=== PATIENT | female | born 1970 | race Caucasian/White ===

== ENCOUNTER 2020-07-26 12:05 | Emergency (ER) | payer OTHER, SELFPAY ==
[2020-07-26 12:13] VITALS: BP 182/102; PULSE 64; RESP 18; O2SAT 99; BMI 31.2
--- NOTE | 2020-07-26 12:21 | DI.RAD.S_ITS ---
PROCEDURE: XR CHEST 1V INDICATIONS: Elevated glucose, hx of T1DM TECHNIQUE: One view of the chest was acquired. COMPARISON: None. FINDINGS: Surgical changes and devices: None. Lungs and pleura: Lungs are clear. No pleural effusions or pneumothorax. Mediastinum: Mediastinal contours appear normal. Heart size is normal. Bones and chest wall: No suspicious bony lesions. Mild, age-appropriate degenerative changes are seen. Overlying soft tissues appear unremarkable. IMPRESSION: Normal portable chest. Dictated by: Marko Maxwell M.D. on 07/26/2020 at 11:55 Approved by: Marko Maxwell M.D. on 07/26/2020 at 11:56
--- NOTE | 2020-07-26 12:31 | ED_ITS ---
HPI - General Adult <Ralf Velasco [facility] - Last Filed: 07/26/20 14:42> General Chief complaint: Diabetic Problem Stated complaint: states DKA Time Seen by Provider: 07/26/20 12:08 Source: patient Mode of arrival: Ambulatory Limitations: no limitations History of Present Illness HPI narrative: This is a 49-year-old female, former smoker, who has past medical history significant for depression, PTSD, OCD, hypertension, hyperlipidemia, type 1 diabetes and on insulin pump with Novalog on 18.6 units/day presents to ED with friend with chief complain of DKA symptoms. Patient reports ge neralized body aches and describes as body's on fire patient usually gets DKA. Patient reports urinary frequency, urgency, dysuria for last 36 hours. Patient also reports polydipsia. Patient denies recent cough or short of breath. Patient reports feeling sweaty and nausea but she usually gets nauseated most of the days. Patient traveled to [place] during [place] years and states she did not have insulin pump needle readily available for last 2-3 days and possibly the insulin pump needle had not placed appropriately on her abdomen. Patient had 1 alcohol drink last yesterday. Patient also reports skin lesion in left upper thigh. Patient lives in [place] and seek medical attention from [facility]. PCP Dr. Garcia and professor of business administration Dr. Karen Galindo. Related Data Allergies Allergy/AdvReac Type Severity Reaction Status Date / Time adhesive Allergy Intermediate Rash Verified 07/26/20 12:18 Sulfa (Sulfonamide Allergy Unknown Verified 07/26/20 12:18 Antibiotics) tetanus toxoid, adsorbed Allergy Unknown Verified 07/26/20 12:18 all pain meds AdvReac Unknown Uncoded 07/26/20 12:18 Review of Systems <Ralf Velasco [employer] - Last Filed: 07/26/20 14:42> Review of Systems Narrative: General: Denies fever, chills, fatigue, malaise, (+) sweats. HEENT: Denies sinus pain, ear pain, sore throat, difficulty swallowing, dizziness. Respiratory: Denies dyspnea, cough, wheezing, hemoptysis, sputum. Cardiovascular: Denies chest pain, palpitations, orthopnea, edema. Gastrointestinal: Denies (+) nausea, vomiting, abdominal pain, diarrhea, constipation, melena. : See HPI Musculoskeletal: See HPI Skin: The HPI Neurologic: Denies weakness, headache, numbness, change in speech, confusion, seizures, incoordination. Psychiatric: See HPI 12-point review of systems is negative except for those stated above. Patient History <LYNSEY Mackey - Last Filed: 07/26/20 14:42> Medical History DKA (diabetic ketoacidoses) Hyperlipidemia Hypertension Insulin dependent diabetes mellitus Major depression OCD (obsessive compulsive disorder) PTSD (post-traumatic stress disorder) Suicidal ideation Social History Smoking Status: Former smoker Smoking Status: Former smoker alcohol intake frequency: 0-2 drinks per day Substance Use Type: marijuana Exam <LYNSEY Mackey - Last Filed: 07/26/20 14:42> Narrative Exam Narrative: GEN: Alert, oriented x 3, well appearing and nourished, and in no acute distress. Head: Normal cephalic, atraumatic. No scalp or temporal tenderness, palpable mass or rash. Patient has on dark sunglasses and hat due to chronic photophobia. EYES: Pupils are equal, round, and reactive to light and accommodation. Extraocular muscles are intact bilaterally. There is no subconjunctival hemorrhage, exudate and sclera non-icteric. ENT: Hearing grossly intact. Nose without bleeding, purulent discharge or deviation. Facial sinuses nontender to palpate. Mucous membrane dry, no mucosal lesion. Throat without erythema, tonsillar hypertrophy or exudate. Uvula in midline, airway patent. Neck: Trachea in midline. No JVD, non-tender without lymphadenopathy. No masses or thyroid megaly. Supple, non-tender and no meningeal signs. CARDIAC: Normal regular rate and rhythm without murmurs, gallops, or rubs. No chest wall tenderness. No peripheral edema, cyanosis or pallor. Capillary refill is less than 2 seconds. RESPIRATORY: Lungs are clear to auscultate bilaterally. No cough, wheezes, rales, or rhonchi. No stridor, respiratory distress, increase work of breathing, or accessary muscle used. ABD: Abdomen soft, nontender and non-distended. No guarding or rebound tenderness to palpate. Bowel sounds are normal in all 4 quadrants. There is no palpable masses or organomegaly. EXT: Full painless ROM of all extremities with no loss of sensation, strength, effusion or edema. SKIN: Warm, dry, normal color for patient. No erythema, lesions or rash over visible areas. BACK: Nontender without deformity or crepitance. No flank tenderness. NEUROLOGICAL: Alert and oriented to place, time and person. Sensation and motor function intact bilaterally. No facial droops, dysphasia. PSYCHIATRIC: Good judgement and reason, without hallucinations, abnormal affect or abnormal behaviors during the examination. Patient is not suicidal. Initial Vital Signs Initial Vital Signs: Vital Signs Pulse Rate 64 07/26/20 12:13 Respiratory Rate 18 07/26/20 12:13 Blood Pressure 182/102 H 07/26/20 12:13 Pulse Oximetry 99 07/26/20 12:13 <Jonn Prasad DO - Last Filed: 07/26/20 18:19> Initial Vital Signs Initial Vital Signs: Vital Signs Pulse Rate 64 07/26/20 12:13 Respiratory Rate 18 07/26/20 12:13 Blood Pressure 182/102 H 07/26/20 12:13 Pulse Oximetry 99 07/26/20 12:13 Scores <LYNSEY Mackey - Last Filed: 07/26/20 14:42> GCS [place] coma scale eye opening: Spontaneous [place] coma scale verbal response: Orientated Meme coma scale motor response: Obey commands Meme coma scale total score: 15 qSOFA Altered Mental Status (GCS <15): No Respiratory rate greater than/equal to 22: No Systolic blood pressure less than or equal to 100: No qSOFA Total: 0 0-1 Not High Risk 1-3 High risk Course <LYNSEY Mackey - Last Filed: 07/26/20 14:42> Orders Ordered: ED Orders 07/26/20 12:20 EKG-12 Lead Stat 07/26/20 12:21 XR chest 1V Stat 07/26/20 12:55 Blood Culture Stat Comprehensive Metabolic Panel Stat Ketones (Beta-Hydroxybutyrate) Stat Lipase Stat Magnesium Stat Procalcitonin Stat Thyroid Stimulating Hormone Stat 07/26/20 12:57 Venous Blood Gas Stat 07/26/20 13:23 Complete Blood Count AUTO DIFF Stat Lactate (Lactic Acid) Stat Discontinued Medications Sodium Chloride (Normal Saline 0.9%) 1,000 mls @ 1,000 mls/hr IV BOLUS ONE Stop: 07/26/20 13:19 Last Infusion: 07/26/20 14:27 Dose: 0 mls/hr Documented by: Admin: 07/26/20 13:52 Dose: 1,000 mls/hr Documented by: JINA Reevaluation(s) Reevaluation #1: Difficulty obtaining past medical history and physical exam due to phone call interruptions from her significant other. Time: 12:32 Reevaluation #2: Difficult IV start. Blood tests were drawn by central lab technician. Patient started to get IV infusion as soon as IV established. Time: 13:30 Vital Signs Vital signs: Vital Signs - 8 hr 07/26/20 12:13 07/26/20 12:50 07/26/20 13:00 Pulse Rate 64 59 L 63 Respiratory Rate 18 Blood Pressure 182/102 H Pulse Oximetry 99 100 100 07/26/20 13:30 07/26/20 13:55 Pulse Rate 59 L 58 L Respiratory Rate Blood Pressure 149/68 H Pulse Oximetry 100 100 <Jonn Prasad DO - Last Filed: 07/26/20 18:19> Orders Ordered: ED Orders 07/26/20 12:20 EKG-12 Lead Stat 07/26/20 12:21 XR chest 1V Stat 07/26/20 12:55 Blood Culture Stat Comprehensive Metabolic Panel Stat Ketones (Beta-Hydroxybutyrate) Stat Lipase Stat Magnesium Stat Procalcitonin Stat Thyroid Stimulating Hormone Stat 07/26/20 12:57 Venous Blood Gas Stat 07/26/20 13:23 Complete Blood Count AUTO DIFF Stat Lactate (Lactic Acid) Stat Discontinued Medications Sodium Chloride (Normal Saline 0.9%) 1,000 mls @ 1,000 mls/hr IV BOLUS ONE Stop: 07/26/20 13:19 Last Infusion: 07/26/20 14:27 Dose: 0 mls/hr Documented by: Admin: 07/26/20 13:52 Dose: 1,000 mls/hr Documented by: JINA Vital Signs Vital signs: Vital Signs - 8 hr 07/26/20 12:13 07/26/20 12:50 07/26/20 13:00 Pulse Rate 64 59 L 63 Respiratory Rate 18 Blood Pressure 182/102 H Pulse Oximetry 99 100 100 07/26/20 13:30 07/26/20 13:55 Pulse Rate 59 L 58 L Respiratory Rate Blood Pressure 149/68 H Pulse Oximetry 100 100 Medical Decision Making <DENIZ MackeyP - Last Filed: 07/26/20 14:42> Differential Diagnosis Differential Diagnosis: Hyperglycemic episode, DKA, chronic pain syndrome Medical Records Medical records reviewed: Yes I reviewed the patient's medical records. Lab Data Lab results reviewed: Yes I reviewed the patient's lab results. Result diagrams: 07/26/20 13:23 07/26/20 12:55 Labs: Lab Results 07/26/20 07/26/20 07/26/20 Range/Units 12:55 12:55 12:55 WBC (4.5-11.0) X10^3/uL RBC (4.0-5.2) X10^6/uL Hgb (12.0-16.0) g/dL Hct (36-46) % MCV (80-100) fL MCH (26-34) PG MCHC (30-36) % RDW (11.6-14.8) % Plt Count (150-400) X10^3/uL Neut % (Auto) (50-75) % Lymph % (Auto) (25-40) % [place] % (Auto) (3-14) % Eos % (Auto) (2-4) % Baso % (Auto) (0-2) % Neut # (Auto) (1389-2088) /uL Lymph # (Auto) (2888-5011) /uL [place] # (Auto) (0-900) /uL Eos # (Auto) (0-450) /uL Baso # (Auto) (0-100) /uL VBG pH (7.33-7.43) VBG pCO2 (45-50) mmHg VBG pO2 (35-45) mmHg VBG HCO3 (23-28) mmol/L VBG Total CO2 (24-29) mmol/L VBG O2 Saturation (70-75) % VBG Base Excess (0-4) mmol/L Sodium 135 L (137-145) mmol/L Potassium 4.1 (3.4-5.1) mmol/L Chloride 103 (98-107) mmol/L Carbon Dioxide 27 (22-32) mmol/L BUN 19 H (7-17) mg/dL Creatinine 0.70 (0.52-1.04) mg/dL Estimated GFR > 60.0 (>60) mL/min BUN/Creatinine Ratio 27.1 H (6-22) Glucose 302 H (70-100) mg/dL Lactate (0.7-2.1) mmol/L Calcium 9.3 (8.4-10.2) mg/dL Magnesium 1.7 (1.6-2.3) mg/dL Total Bilirubin 0.4 (0.2-1.3) mg/dL AST 38 H (14-36) IU/L ALT 29 (<35) IU/L Alkaline Phosphatase 86 (38-126) U/L Total Protein 7.2 (6.3-8.2) g/dL Albumin 3.9 (3.5-5.0) g/dL Globulin 3.3 (1.7-4.1) g/dL Albumin/Globulin Ratio 1.2 (1.0-2.8) Lipase 62 (23-300) U/L Procalcitonin < 0.05 (<0.5) ng/mL TSH (0.47-4.68) uIU/mL Ketones 0.35 H (<0.27) mmol/L 07/26/20 07/26/20 07/26/20 Range/Units 12:55 12:57 13:23 WBC 9.5 (4.5-11.0) X10^3/uL RBC 4.13 (4.0-5.2) X10^6/uL Hgb 12.6 (12.0-16.0) g/dL Hct 38.8 (36-46) % MCV 94.0 (80-100) fL MCH 30.5 (26-34) PG MCHC 32.5 (30-36) % RDW 13.6 (11.6-14.8) % Plt Count 315 (150-400) X10^3/uL Neut % (Auto) 64.8 (50-75) % Lymph % (Auto) 29.1 (25-40) % [place] % (Auto) 5.6 (3-14) % Eos % (Auto) 0.1 L (2-4) % Baso % (Auto) 0.4 (0-2) % Neut # (Auto) 6100 (2442-2753) /uL Lymph # (Auto) 2800 (4676-2587) /uL [place] # (Auto) 500 (0-900) /uL Eos # (Auto) 0 (0-450) /uL Baso # (Auto) 0 (0-100) /uL VBG pH 7.45 H (7.33-7.43) VBG pCO2 36.5 L (45-50) mmHg VBG pO2 39 (35-45) mmHg VBG HCO3 26 (23-28) mmol/L VBG Total CO2 27 (24-29) mmol/L VBG O2 Saturation 76 H (70-75) % VBG Base Excess 2.0 (0-4) mmol/L Sodium (137-145) mmol/L Potassium (3.4-5.1) mmol/L Chloride (98-107) mmol/L Carbon Dioxide (22-32) mmol/L BUN (7-17) mg/dL Creatinine (0.52-1.04) mg/dL Estimated GFR (>60) mL/min BUN/Creatinine Ratio (6-22) Glucose (70-100) mg/dL Lactate (0.7-2.1) mmol/L Calcium (8.4-10.2) mg/dL Magnesium (1.6-2.3) mg/dL Total Bilirubin (0.2-1.3) mg/dL AST (14-36) IU/L ALT (<35) IU/L Alkaline Phosphatase (38-126) U/L Total Protein (6.3-8.2) g/dL Albumin (3.5-5.0) g/dL Globulin (1.7-4.1) g/dL Albumin/Globulin Ratio (1.0-2.8) Lipase (23-300) U/L Procalcitonin (<0.5) ng/mL TSH 2.42 (0.47-4.68) uIU/mL Ketones (<0.27) mmol/L 07/26/20 Range/Units 13:23 WBC (4.5-11.0) X10^3/uL RBC (4.0-5.2) X10^6/uL Hgb (12.0-16.0) g/dL Hct (36-46) % MCV (80-100) fL MCH (26-34) PG MCHC (30-36) % RDW (11.6-14.8) % Plt Count (150-400) X10^3/uL Neut % (Auto) (50-75) % Lymph % (Auto) (25-40) % [place] % (Auto) (3-14) % Eos % (Auto) (2-4) % Baso % (Auto) (0-2) % Neut # (Auto) (9358-7280) /uL Lymph # (Auto) (3631-0871) /uL [place] # (Auto) (0-900) /uL Eos # (Auto) (0-450) /uL Baso # (Auto) (0-100) /uL VBG pH (7.33-7.43) VBG pCO2 (45-50) mmHg VBG pO2 (35-45) mmHg VBG HCO3 (23-28) mmol/L VBG Total CO2 (24-29) mmol/L VBG O2 Saturation (70-75) % VBG Base Excess (0-4) mmol/L Sodium (137-145) mmol/L Potassium (3.4-5.1) mmol/L Chloride (98-107) mmol/L Carbon Dioxide (22-32) mmol/L BUN (7-17) mg/dL Creatinine (0.52-1.04) mg/dL Estimated GFR (>60) mL/min BUN/Creatinine Ratio (6-22) Glucose (70-100) mg/dL Lactate 1.2 (0.7-2.1) mmol/L Calcium (8.4-10.2) mg/dL Magnesium (1.6-2.3) mg/dL Total Bilirubin (0.2-1.3) mg/dL AST (14-36) IU/L ALT (<35) IU/L Alkaline Phosphatase (38-126) U/L Total Protein (6.3-8.2) g/dL Albumin (3.5-5.0) g/dL Globulin (1.7-4.1) g/dL Albumin/Globulin Ratio (1.0-2.8) Lipase (23-300) U/L Procalcitonin (<0.5) ng/mL TSH (0.47-4.68) uIU/mL Ketones (<0.27) mmol/L Point of Care Testing Glucose POC 254 Urine Dip Bedside Urine Glucose 1000 mg/dl Bedside Urine Bilirubin - Negative Bedside Urine Ketone +/- 5 Urine Specific [place] 1.025 Bedside Urine Occult Blood - Negative Bedside Urine pH 6 Bedside Urine Protein - Negative Bedside Urine Urobilinogen - Negative Bedside Urine Nitrite - Negative Bedside Urine Leukocytes - Negative Esterase Point of care testing: Point of Care Testing Glucose POC 254 Urine Dip Bedside Urine Glucose 1000 mg/dl Bedside Urine Bilirubin - Negative Bedside Urine Ketone +/- 5 Urine Specific [place] 1.025 Bedside Urine Occult Blood - Negative Bedside Urine pH 6 Bedside Urine Protein - Negative Bedside Urine Urobilinogen - Negative Bedside Urine Nitrite - Negative Bedside Urine Leukocytes - Negative Esterase Imaging Data Chest x-ray: Radiologist's Impression: [address] [id number] ReportSigned Patient: Mirian Casanova CMR#: [id number]: [id number]:[id number]/Sex: 49 / FDate of Service: 07/26/20Loc: EDAccession Number: [id number] Procedure: XR chest 1V Ordering Provider: Ralf Velasco PROCEDURE: XR CHEST 1V INDICATIONS: Elevated glucose, hx of T1DM TECHNIQUE: One view of the chest was acquired. COMPARISON: None. FINDINGS: Surgical changes and devices: None. Lungs and pleura: Lungs are clear. No pleural effusions or pneumothorax. Mediastinum: Mediastinal contours appear normal. Heart size is normal. Bones and chest wall: No suspicious bony lesions. Mild, age-appropriate degenerative changes are seen. Overlying soft tissues appear unremarkable. IMPRESSION: Normal portable chest. Dictated by: Marko Maxwell M.D. on 07/26/2020 at 11:55 Approved by: Marko Maxwell M.D. on 07/26/2020 at 11:56 ECG Data Attestation: I personally reviewed and interpreted this ECG as follows: Prior ECG tracings: not available for review Interpretation: Sinus rhythm with sinus arrhythmia rate at 60. Normal [place]. [place] interval 168, QRS duration 72, QT/QTC 408/408. No acute ST changes MDM Narrative Medical decision making narrative: This is a 49 year female who is from [place] on her way to [place] and seeks medical care at [place] presents to ED with concerns for DKA with body aches. Patient states she was not able to check blood glucose for last 2.5 days and thinks IV pump for insulin needle is malfunctioning. Initial POC blood glucose is 338 mg/dL. Workup for DKA started. VBG does not indicate DKA. pH of 7.45, pCO2 of 36.5 with within normal BE and HCO3. No leukocytosis or elevated in lactate and procalcitonin. Urine test does not indicate UTIs. Chest x-ray without acute findings. Chemistry test indicates slightly elevated BUN/creatinine ratio and BUN indicati ng mild dehydration. Slightly elevated ketones of 0.35. Patient also had +/-5 ketones and glucose in urine. Administered normal saline about 500 mL and she was able to tolerate fluids without nausea or vomiting. Patient work done pump for insulin and delivered 3 units of regular insulin. Shortly after POC glucose we checked with 254 mg/dL. It appears to be insulin pump is functioning at this time. Patient advised to return to home in [place] and to follow her insulin pump regimen. Return precautions were discussed with patient and she verbalized understanding in agreement with the treatment plan. <Jonn Prasad, DO - Last Filed: 07/26/20 18:19> Lab Data Labs: Lab Results 07/26/20 07/26/20 07/26/20 Range/Units 12:55 12:55 12:55 WBC (4.5-11.0) X10^3/uL RBC (4.0-5.2) X10^6/uL Hgb (12.0-16.0) g/dL Hct (36-46) % MCV (80-100) fL MCH (26-34) PG MCHC (30-36) % RDW (11.6-14.8) % Plt Count (150-400) X10^3/uL Neut % (Auto) (50-75) % Lymph % (Auto) (25-40) % [place] % (Auto) (3-14) % Eos % (Auto) (2-4) % Baso % (Auto) (0-2) % Neut # (Auto) (8242-3450) /uL Lymph # (Auto) (7882-2005) /uL [place] # (Auto) (0-900) /uL Eos # (Auto) (0-450) /uL Baso # (Auto) (0-100) /uL VBG pH (7.33-7.43) VBG pCO2 (45-50) mmHg VBG pO2 (35-45) mmHg VBG HCO3 (23-28) mmol/L VBG Total CO2 (24-29) mmol/L VBG O2 Saturation (70-75) % VBG Base Excess (0-4) mmol/L Sodium 135 L (137-145) mmol/L Potassium 4.1 (3.4-5.1) mmol/L Chloride 103 (98-107) mmol/L Carbon Dioxide 27 (22-32) mmol/L BUN 19 H (7-17) mg/dL Creatinine 0.70 (0.52-1.04) mg/dL Estimated GFR > 60.0 (>60) mL/min BUN/Creatinine Ratio 27.1 H (6-22) Glucose 302 H (70-100) mg/dL Lactate (0.7-2.1) mmol/L Calcium 9.3 (8.4-10.2) mg/dL Magnesium 1.7 (1.6-2.3) mg/dL Total Bilirubin 0.4 (0.2-1.3) mg/dL AST 38 H (14-36) IU/L ALT 29 (<35) IU/L Alkaline Phosphatase 86 (38-126) U/L Total Protein 7.2 (6.3-8.2) g/dL Albumin 3.9 (3.5-5.0) g/dL Globulin 3.3 (1.7-4.1) g/dL Albumin/Globulin Ratio 1.2 (1.0-2.8) Lipase 62 (23-300) U/L Procalcitonin < 0.05 (<0.5) ng/mL TSH (0.47-4.68) uIU/mL Ketones 0.35 H (<0.27) mmol/L 07/26/20 07/26/20 07/26/20 Range/Units 12:55 12:57 13:23 WBC 9.5 (4.5-11.0) X10^3/uL RBC 4.13 (4.0-5.2) X10^6/uL Hgb 12.6 (12.0-16.0) g/dL Hct 38.8 (36-46) % MCV 94.0 (80-100) fL MCH 30.5 (26-34) PG MCHC 32.5 (30-36) % RDW 13.6 (11.6-14.8) % Plt Count 315 (150-400) X10^3/uL Neut % (Auto) 64.8 (50-75) % Lymph % (Auto) 29.1 (25-40) % [place] % (Auto) 5.6 (3-14) % Eos % (Auto) 0.1 L (2-4) % Baso % (Auto) 0.4 (0-2) % Neut # (Auto) 6100 (4366-4047) /uL Lymph # (Auto) 2800 (9823-5342) /uL [place] # (Auto) 500 (0-900) /uL Eos # (Auto) 0 (0-450) /uL Baso # (Auto) 0 (0-100) /uL VBG pH 7.45 H (7.33-7.43) VBG pCO2 36.5 L (45-50) mmHg VBG pO2 39 (35-45) mmHg VBG HCO3 26 (23-28) mmol/L VBG Total CO2 27 (24-29) mmol/L VBG O2 Saturation 76 H (70-75) % VBG Base Excess 2.0 (0-4) mmol/L Sodium (137-145) mmol/L Potassium (3.4-5.1) mmol/L Chloride (98-107) mmol/L Carbon Dioxide (22-32) mmol/L BUN (7-17) mg/dL Creatinine (0.52-1.04) mg/dL Estimated GFR (>60) mL/min BUN/Creatinine Ratio (6-22) Glucose (70-100) mg/dL Lactate (0.7-2.1) mmol/L Calcium (8.4-10.2) mg/dL Magnesium (1.6-2.3) mg/dL Total Bilirubin (0.2-1.3) mg/dL AST (14-36) IU/L ALT (<35) IU/L Alkaline Phosphatase (38-126) U/L Total Protein (6.3-8.2) g/dL Albumin (3.5-5.0) g/dL Globulin (1.7-4.1) g/dL Albumin/Globulin Ratio (1.0-2.8) Lipase (23-300) U/L Procalcitonin (<0.5) ng/mL TSH 2.42 (0.47-4.68) uIU/mL Ketones (<0.27) mmol/L 07/26/20 Range/Units 13:23 WBC (4.5-11.0) X10^3/uL RBC (4.0-5.2) X10^6/uL Hgb (12.0-16.0) g/dL Hct (36-46) % MCV (80-100) fL MCH (26-34) PG MCHC (30-36) % RDW (11.6-14.8) % Plt Count (150-400) X10^3/uL Neut % (Auto) (50-75) % Lymph % (Auto) (25-40) % [place] % (Auto) (3-14) % Eos % (Auto) (2-4) % Baso % (Auto) (0-2) % Neut # (Auto) (3775-2061) /uL Lymph # (Auto) (7606-5735) /uL [place] # (Auto) (0-900) /uL Eos # (Auto) (0-450) /uL Baso # (Auto) (0-100) /uL VBG pH (7.33-7.43) VBG pCO2 (45-50) mmHg VBG pO2 (35-45) mmHg VBG HCO3 (23-28) mmol/L VBG Total CO2 (24-29) mmol/L VBG O2 Saturation (70-75) % VBG Base Excess (0-4) mmol/L Sodium (137-145) mmol/L Potassium (3.4-5.1) mmol/L Chloride (98-107) mmol/L Carbon Dioxide (22-32) mmol/L BUN (7-17) mg/dL Creatinine (0.52-1.04) mg/dL Estimated GFR (>60) mL/min BUN/Creatinine Ratio (6-22) Glucose (70-100) mg/dL Lactate 1.2 (0.7-2.1) mmol/L Calcium (8.4-10.2) mg/dL Magnesium (1.6-2.3) mg/dL Total Bilirubin (0.2-1.3) mg/dL AST (14-36) IU/L ALT (<35) IU/L Alkaline Phosphatase (38-126) U/L Total Protein (6.3-8.2) g/dL Albumin (3.5-5.0) g/dL Globulin (1.7-4.1) g/dL Albumin/Globulin Ratio (1.0-2.8) Lipase (23-300) U/L Procalcitonin (<0.5) ng/mL TSH (0.47-4.68) uIU/mL Ketones (<0.27) mmol/L Point of Care Testing Glucose POC 254 Urine Dip Bedside Urine Glucose 1000 mg/dl Bedside Urine Bilirubin - Negative Bedside Urine Ketone +/- 5 Urine Specific [place] 1.025 Bedside Urine Occult Blood - Negative Bedside Urine pH 6 Bedside Urine Protein - Negative Bedside Urine Urobilinogen - Negative Bedside Urine Nitrite - Negative Bedside Urine Leukocytes - Negative Esterase Point of care testing: Point of Care Testing Glucose POC 254 Urine Dip Bedside Urine Glucose 1000 mg/dl Bedside Urine Bilirubin - Negative Bedside Urine Ketone +/- 5 Urine Specific [place] 1.025 Bedside Urine Occult Blood - Negative Bedside Urine pH 6 Bedside Urine Protein - Negative Bedside Urine Urobilinogen - Negative Bedside Urine Nitrite - Negative Bedside Urine Leukocytes - Negative Esterase Discharge Plan Departure Patient Disposition: Home Clinical Impression: Hyperglycemia due to diabetes mellitus Instructions: DI for Diabetes Type 1 -- Adult, DI for Hyperglycemia -- Adult Activity Restrictions/Additional Instructions: You have been diagnosed with [hyperglycemia and history of diabetes type 1 using insulin pump. No indications for infection at this time. No indications for DKA.]. What to do: *Take your medications as directed. Please follow with your insulin pump regimen. *Follow up with your primary care provider in 2-3 days, call for an appointment. Let them know you were seen in the ED and that we asked you to be seen in follow up. *Return to ED if you have any new, worsening, or concerning symptoms, such as [chest pain, dyspnea, feeling like faint, fever, unable to tolerate fluids, abdominal pain, or any acute concerns]. Ref[facility] [Outside] <Jonn Prasad DO - Last Filed: 07/26/20 18:19> Cosign ED Attending Cosignature Attestation: I was immediately available in the department for consultation. This documentation has been reviewed and I agree with assessment and plan. Supervised by Jonn Prasad DO
[2020-07-26 12:50] VITALS: PULSE 59; O2SAT 100
[2020-07-26 13:00] VITALS: PULSE 63; O2SAT 100
[2020-07-26 13:15] LABS: pH VBG 7.45 (7.33-7.43)
[2020-07-26 13:16] LABS: HCO3 VBG 26 mmol/L (23-28); Oxygen Saturation VBG 76 % (70-75); PO2 VBG 39 mmHg (35-45); Total CO2 VBG 27 mmol/L (24-29)
[2020-07-26 13:17] LABS: PCO2 VBG 36.5 mmHg (45-50)
--- NOTE | 2020-07-26 13:26 | PC.NURSE ---
IV start assisted by lab who was also trying to gain venous access for a blood draw. Lab collected for blood cultures and a rainbow out of this IV site.
[2020-07-26 13:30] VITALS: PULSE 59; O2SAT 100
[2020-07-26 13:40] LABS: Add Manual Diff / Slide Review NO; Basophils Absolute Auto 0 /uL (0-100); Basophils Percent Auto 0.4 % (0-2); Eosinophils Absolute Auto 0 /uL (0-450); Eosinophils Percent Auto 0.1 % (2-4); Hematocrit 38.8 % (36-46); Hemoglobin 12.6 g/dL (12.0-16.0); Lymphocytes Absolute Auto 2800 /uL (1100-4500); Lymphocytes Percent Auto 29.1 % (25-40); Mean Corpuscular HGB Conc 32.5 % (30-36); Mean Corpuscular Hemoglobin 30.5 PG (26-34); Monocytes Absolute Auto 500 /uL (0-900); Monocytes Percent Auto 5.6 % (3-14); Neutrophils Absolute Auto 6100 /uL (1500-7000); Neutrophils Percent Auto 64.8 % (50-75); Platelet Count 315 X10^3/uL (150-400); Red Blood Cell Count 4.13 X10^6/uL (4.0-5.2); Red Cell Distribution Width 13.6 % (11.6-14.8); White Blood Cell Count 9.5 X10^3/uL (4.5-11.0)
[2020-07-26 13:51] LABS: Lipase 62 U/L (23-300)
[2020-07-26] MEDS: SODIUM CHLORIDE 0.9% 1,000 ML 1000 ML IV (13:52)
[2020-07-26 13:53] LABS: Alanine Aminotransferase 29 IU/L (<35); Albumin 3.9 g/dL (3.5-5.0); Albumin Globulin Ratio 1.2 (1.0-2.8); Alkaline Phosphatase 86 U/L (38-126); Aspartate Aminotransferase 38 IU/L (14-36); BUN Creatinine Ratio 27.1 (6-22); Bilirubin Total 0.4 mg/dL (0.2-1.3); Blood Urea Nitrogen 19 mg/dL (7-17); Calcium 9.3 mg/dL (8.4-10.2); Carbon Dioxide 27 mmol/L (22-32); Chloride 103 mmol/L (98-107); Estimated Glomerular Filt Rate > 60.0 mL/min (>60); Globulin 3.3 g/dL (1.7-4.1); Glucose 302 mg/dL (70-100); HEMOLYSIS 20 (0-50); Magnesium 1.7 mg/dL (1.6-2.3); Potassium 4.1 mmol/L (3.4-5.1); Sodium 135 mmol/L (137-145); Total Protein 7.2 g/dL (6.3-8.2)
[2020-07-26 13:55] VITALS: BP 149/68; PULSE 58; O2SAT 100
[2020-07-26 13:55] LABS: Ketones (Beta-Hydroxybutyrate) 0.35 mmol/L (<0.27)
[2020-07-26 13:58] LABS: Lactate (Lactic Acid) 1.2 mmol/L (0.7-2.1)
[2020-07-26 14:08] LABS: Procalcitonin < 0.05 ng/mL (<0.5)
[2020-07-26 14:23] LABS: Thyroid Stimulating Hormone 2.42 uIU/mL (0.47-4.68)
== END 2020-07-26 14:39 | disposition home or self-care (01) ==
PROVIDERS: Emergency Provider Nurse Practitioner Family
DX: E10.65 Type 1 diabetes mellitus with hyperglycemia (principal); Z79.4 Long term (current) use of insulin; R30.0 Dysuria; R63.1 Polydipsia; R11.0 Nausea; L98.9 Disorder of the skin and subcutaneous tissue, unspecified; E78.5 Hyperlipidemia, unspecified; I10 Essential (primary) hypertension; F42.9 Obsessive-compulsive disorder, unspecified; F43.10 Post-traumatic stress disorder, unspecified
CPT/HCPCS: 36415; 71045; 80053; 81003; 82009; 82805; 82962; 83605; 83690; 83735; 84145; 84443; 85025; 87040; 93005; 96360; 99283; 99284